=== PATIENT | male | born 1970 | race Caucasian/White ===

== ENCOUNTER 2017-07-26 08:00 | Outpatient (CLI) | payer BC ==
[2017-07-26 12:52] LABS: BASOPHILS # (AUTO) 0.1 10^3/uL (0.0-0.1); BASOPHILS % (AUTO) 0.7 %; EOSINOPHILS # (AUTO) 0.3 10^3/uL (0.0-0.7); HCT - HEMATOCRIT 45.4 % (42.0-52.0); HGB - HEMOGLOBIN 15.5 g/dL (14.0-18.0); LYMPHOCYTES # (AUTO) 2.7 10^3/uL (1.5-3.5); LYMPHOCYTES % (AUTO) 33.7 %; MEAN CORPUSCULAR HGB CONC 34.2 g/dL (32.0-36.0); MEAN CORPUSCULAR VOLUME 87.8 fL (80.0-94.0); MEAN PLATELET VOLUME 8.1 fL (7.4-11.4); MONOCYTES # (AUTO) 0.6 10^3/uL (0.0-1.0); MONOCYTES % (AUTO) 7.4 %; NEUTROPHILS # (AUTO) 4.3 10^3/uL (1.5-6.6); NEUTROPHILS % (AUTO) 54.2 %; NUCLEATED RED BLOOD CELLS AUTO 0.2 /100WBC; RED BLOOD COUNT 5.17 10^6/uL (4.70-6.10); RED CELL DISTRIBUTION WIDTH 13.4 % (12.0-15.0)
[2017-07-26 13:23] LABS: ALBUMIN/GLOBULIN RATIO 1.5 (1.0-2.2); BILIRUBIN,TOTAL 0.6 mg/dL (0.2-1.0); BUN - BLOOD UREA NITROGEN 10 mg/dL (6-20); CALCIUM 9.2 mg/dL (8.5-10.3); CARBON DIOXIDE - CO2 29 mmol/L (21-32); CHLORIDE 101 mmol/L (101-111); CHOL/HDL RATIO 5.6 (<5.0); CHOLESTEROL 234 mg/dL; CREATININE 0.9 mg/dL (0.6-1.2); GFR - MDRD 91 (>89); GLUCOSE 97 mg/dL (70-100); HDL CHOLESTEROL 42 mg/dL; LDL/HDL RATIO 3.4 (<3.6); POTASSIUM 4.3 mmol/L (3.5-5.0); SODIUM 135 mmol/L (135-145); TOTAL PROTEIN 7.8 g/dL (6.7-8.2); TRIGLYCERIDES 247 mg/dL; VLDL CHOLESTEROL 49 mg/dL
== END 2017-07-26 08:01 | disposition home or self-care (01) ==
LOC: LAB.WCP 08:00
PROVIDERS: ATTEND Physician Assistant Medical
DX: Z00.00 Encounter for general adult medical examination without abnormal findings (principal); Z12.5 Encounter for screening for malignant neoplasm of prostate
CPT/HCPCS: 36415; 80053; 80061; 84153; 84443; 85025

== ENCOUNTER 2018-11-09 08:24 | Day surgery (SDC) | payer OTHER ==
[2018-11-09] MEDS ORDERED: LACTATED RINGERS 1,000 ML IV ONE (08:50)
[2018-11-09] MEDS ORDERED: fentaNYL 250 MCG/5 ML VIAL IVP ONE (10:34)
[2018-11-09] MEDS ORDERED: MIDAZOLAM 2 MG/2 ML VIAL IVP ONE (10:34)
[2018-11-09 10:59] VITALS: BP 92/48
== END 2018-11-09 08:25 | disposition home or self-care (01) ==
LOC: SDS 08:24
PROVIDERS: ATTEND Internal Medicine Gastroenterology
PROC: 0DJD8ZZ Inspection of Lower Intestinal Tract, Via Natural or Artificial Opening Endoscopic (ICD-10-PCS; principal; 2018-11-09 09:45)
DX: R19.4 Change in bowel habit (principal); Z80.0 Family history of malignant neoplasm of digestive organs
CPT/HCPCS: 45378; J3010; J7120

== ENCOUNTER 2021-02-04 15:27 | Emergency (ER) | payer BC, OTHER ==
[2021-02-04 15:51] VITALS: BP 131/102
--- NOTE | 2021-02-04 15:54 | ED Physician Documentation ---
History of Present Illness - Stated complaint Stated Complaint: C+/,SINUS PRESSURE - Chief complaint Chief Complaint: Heent - History obtained from History obtained from: Patient - History of Present Illness Timing: Other (12 days) Pain level max: 3 Pain level now: 3 - Additonal information Additional information: Patient is a 50-year-old male who states he has been sick for the past 12 to 13 days. Tested positive for COVID-19 on Tuesday. States has nasal congestion and occasional headaches. Taking Motrin and Tylenol at home. No fevers. Nothing makes it better or worse. Attempted to go to the urgent care today, but they stated they do not see people of been tested positive for Covid. Came here in stead. Review of Systems Constitutional: denies: Fever, Chills GI: denies: Vomiting, Diarrhea Skin: denies: Rash Musculoskeletal: denies: Neck pain, Back pain Neurologic: denies: Focal weakness, Numbness, Headache PD PAST MEDICAL HISTORY - Past Medical History Cardiovascular: Murmur Respiratory: None Endocrine/Autoimmune: None GI: None : None HEENT: None Psych: None Musculoskeletal: None Derm: None - Past Surgical History General: Appendectomy - Present Medications Home Medications: Ambulatory Orders Medication Instructions Recorded Confirmed No Known Home Medications 02/04/21 02/04/21 - Allergies Allergies/Adverse Reactions: Allergies Allergy/AdvReac Type Severity Reaction Status Date / Time No Known Drug Allergies Allergy Verified 02/04/21 15:51 PD ED PE NORMAL - Vitals Vital signs reviewed: Yes - General General: Alert and oriented X 3, No acute distress - HEENT HEENT: PERRL, Ears normal, Moist mucous membranes, Pharynx benign, Other (No sinus tenderness. no drainage) - Neck Neck: Supple, no meningeal sign - Cardiac Cardiac: RRR, Strong equal pulses - Respiratory Respiratory: No respiratory distress, Clear bilaterally - Abdomen Abdomen: Soft, Non tender, Non distended - Derm Derm: Warm and dry - Extremities Extremities: No edema - Neuro Neuro: Alert and oriented X 3 - Psych Psych: Normal mood, Normal affect Results - Vitals Vitals: Vital Signs - 24 hr 02/04/21 15:32 Temperature 36.8 C Heart Rate 81 Respiratory 16 Rate Blood Pressure 131/102 H O2 Saturation 99 Oxygen O2 Source Room air PD MEDICAL DECISION MAKING - ED course Complexity details: considered differential, d/w patient ED course: 50-year-old male with recent COVID-19 positive test. He has been symptomatic for about 12 to 13 days. bamlanivimab and etesevimab are only authorized within 10 days of symptom onset. No hypoxia. No respiratory distress. No evidence of secondary bacterial infection. Lungs are clear to auscultation bilaterally. Patient counseled regarding signs and symptoms for which I believe and urgent re-evaluation would be necessary. Patient with good understanding of and agreement to plan and is comfortable going home at this time This document was made in part using voice recognition software. While efforts are made to proofread this document, sound alike and grammatical errors may occur. Departure - Departure Disposition: 01 Home, Self Care Clinical Impression: COVID-19 Condition: Good Instructions: COVID-19 [facility] Follow-Up: Karolina Vanegas PA-C [Primary Care Provider] - As Needed Comments: Follow-up with your doctor as needed for further care. Return if you worsen.
== END 2021-02-04 16:00 | disposition home or self-care (01) ==
LOC: ED 15:27
DX: U07.1 COVID-19 (principal); R09.81 Nasal congestion; R51.9 Headache, unspecified
CPT/HCPCS: 99281; 99284

== ENCOUNTER 2021-04-15 11:25 | Outpatient (CLI) | payer SELFPAY | END 2021-04-15 11:26 | disposition EMS.NT | LOC: EMS 11:25 | DX: R55 Syncope and collapse (principal) ==